=== PATIENT | male | born 1950 | race American Indian/Alaskan Native ===

== ENCOUNTER 2019-08-09 13:36 | Inpatient (IN) | payer BC ==
[2019-08-09 15:25] LABS: #Eosinphils 0.5 thou/uL (0.0-0.7); #Lymphocytes 1.4 thou/uL (1.20-3.40); #Monocytes 0.8 thou/uL (0.11-0.59); #Neutrophils 7.4 thou/uL (1.40-6.50); %Basophils 0.5 % (0.0-1.0); %Eosinophils 4.8 % (0.0-10.0); %Lymphocytes 13.8 % (21.0-51.0); %Monocytes 7.6 % (0.0-10.0); %Neutrophils 73.4 % (42.0-75.0); Hemoglobin 16.6 g/dL (14.0-18.0); Mean Corpuscular Hemoglobin 31.5 pg (27.0-31.0); Mean Corpuscular Volume 95.6 fL (78.0-98.0); Mean Platelet Volume 7.7 fL (7.4-10.4); Platelet Count 250 thou/uL (130-400); RBC Distribution Width 12.9 % (11.5-14.5); Red Blood Cell (RBC) Count 5.26 mill/uL (4.70-6.10); White Blood Cell (WBC) Count 10.1 thou/uL (4.8-10.8)
--- NOTE | 2019-08-09 15:27 | RAD ---
XR Chest 1 View Portable History: Abnormal EKG. Comparison: None. Findings: Heart size mildly enlarged. No pneumothorax. No effusion. No concerning for airspace consol idation. No acute osseous abnormality. Impression: No acute intrathoracic abnormality.
[2019-08-09 15:47] LABS: ALT (SGPT) 35 U/L (8-55); AST (SGOT) 38 U/L (5-34); Albumin 4.6 g/dL (3.4-4.8); Alkaline Phosphatase 77 U/L (40-110); Anion Gap 13 mmol/L (10-20); BUN (Urea Nitrogen) 8 mg/dL (8.4-25.7); Bilirubin, Total 1.3 mg/dL (0.2-1.2); Calc. Creatinine Clearance 0 mL/min (70-130); Calcium 10.4 mg/dL (7.8-10.44); Carbon Dioxide 26 mmol/L (23-31); Chloride 102 mmol/L (98-107); Estimated GFR-MDRD Greater than 90; Globulin 3.5 g/dL (2.4-3.5); Glucose 103 mg/dL (80-115); Potassium 4.3 mmol/L (3.5-5.1); Protein, Total 8.1 g/dL (5.8-8.1); Sodium 137 mmol/L (136-145)
[2019-08-09] MEDS ORDERED: Clopidogrel Bisulfate 75 MG TAB ONE (16:27)
[2019-08-09 17:40] LABS: PTT 29.5 SEC (22.9-36.1); Prothrombin Time 12.8 SEC (12.0-14.7)
[2019-08-09] MEDS ORDERED: Enoxaparin Sodium 80 MG/0.8 ML SYRINGE ONE (17:44)
[2019-08-09 18:59] LABS: Troponin I 0.024 ng/mL (< 0.028)
[2019-08-09] MEDS: Carvedilol 6.25 MG TAB PO SCH (21:37)
[2019-08-09] MEDS: Atorvastatin Calcium 20 MG TAB PO SCH (21:37)
--- NOTE | 2019-08-10 00:45 | HP ---
CHIEF COMPLAINT: Abnormal EKG and elevated blood pressure. HISTORY OF PRESENT ILLNESS: Mr. Dowd is a 69-year-old [place] male with past medical history of hypertension, coronary artery disease status post stent, hyperlipidemia, came to my office for routine checkup and physical. He had an EKG done which showed atrial flutter with controlled ventricular rate. The patient did not have any palpitations or chest pain, but he does have some shortness of breath on exertion going on for some time. No dizziness. No nausea or vomiting. No headache. The patient basically was asymptomatic. The patient was sent to the hospital because of atrial flutter, possible new onset. In the ER, the patient was evaluated and found to have atrial flutter with rapid ventricular rate. The patient received Cardizem IVP dose x2, after which his rate came down. His blood pressures were also elevated and they both came down with IVP Cardizem. Initially, proposed to start IV infusion, but it was never started because his heart rate came down to 70. The patient feels fine right now. He is being admitted for further evaluation and management. PAST MEDICAL HISTORY: 1. Hypertension. 2. Coronary artery disease, status post stent in 2004. 3. Hyperlipidemia. 4. Shortness of breath on exertion. PAST SURGICAL HISTORY: Status post stent in 2004. CURRENT MEDICATIONS: The patient is on: 1. Coreg 6.25 b.i.d. 2. Olmesartan 20 mg daily. 3. Plavix 75 mg daily. 4. Isosorbide 20 mg daily. 5. Atorvastatin 20 mg at bedtime. ALLERGIES: NKDA. FAMILY HISTORY: Nothing contributory. SOCIAL HISTORY: No history of alcohol. No history of smoking. REVIEW OF SYSTEMS: CARDIOVASCULAR: No chest pain. Has shortness of breath on exertion. RESPIRATORY: No cough or fever. GASTROINTESTINAL: No nausea or vomiting. CENTRAL NERVOUS SYSTEM: No headache or dizziness. PHYSICAL EXAMINATION: GENERAL: The patient is alert, awake, oriented x3. VITAL SIGNS: Temperature 98; pulse initially 119, now in 70; respirations 20, blood pressure 190/100 initially, now 160/90. HEENT: Normocephalic, atraumatic. Pupils are equal and reactive. Nasopharynx is pale and dry. NECK: Supple. No JVD. LUNGS: Bilateral air entry with no rales. No rhonchi. HEART: S1 and S2, irregular. ABDOMEN: Soft. No distention. No tenderness. No organomegaly. Bowel sounds normal. RECTAL: Deferred. CENTRAL NERVOUS SYSTEM: No focal deficits. LABORATORY DATA: CBC shows WBC 10, hemoglobin 16, hematocrit 50, platelets Metabolic panel; sodium 137, potassium 4.0 chloride 102, CO2 of 26, urea nitrogen 8, creatinine 0.8, glucose 103, AST of 38. Troponin I less than 0.010. Prothrombin time 12, INR 1. Chest x-ray negative. EKG shows atrial flutter with rapid ventricular rate, with heart rate 119. No acute ST-T changes seen. ASSESSMENT: 1. Atrial flutter with rapid ventricular rate. 2. Hypertension, uncontrolled. 3. Coronary artery disease, status post stent. 4. Hyperlipidemia. PLAN: 1. Vital signs q.4 hours. 2. Activities as tolerated. 3. Allergies, NKDA. 4. Hep-Lock. 5. Cardizem 60 b.i.d. p.o. 6. Continue home medications. 7. Cardiology consult. 8. Echocardiogram. 9. Troponin I q.6 hours x2. 10. Lovenox subcu daily. Job ID: [id number] [facility]
[2019-08-10 06:12] VITALS: BMI 23.4
[2019-08-10] MEDS ORDERED: Prevnar 13-Val Conj/PF 0.5 ML SYRINGE IM ONE (09:00)
[2019-08-10] MEDS: Losartan 25 MG TAB PO SCH (09:41)
[2019-08-10] MEDS: Carvedilol 6.25 MG TAB PO SCH ×2 (09:41→21:16)
[2019-08-10] MEDS: Enoxaparin Sodium 60 MG/0.6 ML SYRINGE SC SCH ×2 (09:41→21:17)
[2019-08-10] MEDS: Clopidogrel Bisulfate 75 MG TAB PO SCH (09:42)
--- NOTE | 2019-08-10 10:55 | CON ---
DATE OF CONSULTATION: 08/10/2019 ADDITIONAL REFERRING PHYSICIAN: Russ Bernal MD HISTORY OF PRESENT ILLNESS: I am seeing Mr. 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 His problems are: 1. Newly found atrial flutter with typical likely isthmus dependent features present on morphology, but non-CTI dependent morphology was also observed. 2. History of coronary artery disease with stent placement in the past. 3. History of hypertension. 4. Hyperlipidemia. ALLERGIES: NONE. MEDICATIONS: At home, included: 1. Carvedilol. 2. Clopidogrel. 3. Olmesartan. SUBJECTIVE: Mr. Dowd is here with abnormal EKGs. He has noticed some palpitations recently, but denies passing out or any generalized discomforts. He has no stroke-like symptoms or bleeding issues. No neurological deficits. He went to his primary care physician's office and found to have atrial flutter with controlled ventricular rates. He does complain of some dyspnea recently. IV Cardizem was given. His rates remain controlled. Currently, the patient is fairly asymptomatic with controlled rate. REVIEW OF SYSTEMS: Rest of 12-point review of system was otherwise unremarkable. PAST HISTORY: As above. SOCIAL HISTORY: The patient denies smoking, EtOH, or drug abuse. FAMILY HISTORY: Not contributory. OBJECTIVE DATA: VITAL SIGNS: Blood pressure is 142/81, heart rate 79, respirator rate 16, and temperature 98 degrees Fahrenheit. GENERAL: Alert and oriented man, in no apparent distress. NECK: Supple. Jugular veins not distended. CHEST: Coarse without crackles. HEART: Sounds are irregularly irregular. S1 and S2 are variable. No murmur or gallop. ABDOMEN: Benign. Bowel sounds positive. EXTREMITIES: Lower extremities without edema, clubbing, or cyanosis. Pulses are adequate. NEUROLOGIC: The patient is nonfocal. MUSCULOSKELETAL: Without joint swelling or deformity. SKIN: Without rash. DATABASE: EKG is reviewed. Initial EKG reveals a very irregular atrial flutter , possibly consistent with isthmus dependent morphology. The ventricular rates are 81 beats per minute. Subsequent EKGs reveal atrial flutter. Review of the telemetry strips revealed alternative flutter morphologies. No true atrial fibrillation is noted yet. LABORATORY DATA: White blood cell count is 10.1, hemoglobin 16.6, and platelet count is 250. INR 1.0. Sodium 137, potassium 4.3, BUN is 8, and creatinine is 0.84. ASSESSMENT AND PLAN: Mr. Dowd is a pleasant 69-year-old man with history of coronary artery disease and stent placement. He has no history of cardiomyopathy or prior arrhythmias. He now presented with newly found atrial flutter with some dyspnea, rates are most controlled and did not require high dosage of rate-controlling agents. Morphology of the EKG is reviewed, which could suggest typical isthmus dependent flutter in morphology, but telemetry strips does reveal some alternative morphology suggestive of multiple circuits may be present. We discussed the etiology of atrial flutter and potential fibrillation with him. He understands the mechanism and the treatment options, which could include continued rate control with anticoagulation, alternatively with AVA-guided cardioversion could be considered and may benefit from Multaq as an additional antiarrhythmic agent. If that fails or does not tolerate medication, he may benefit from ablation efforts in the future. We will see him back in the office in this regard. Thank you again for allowing me to participate in the care of this patient. Job ID: [id number] [facility]
[2019-08-10] MEDS: Atorvastatin Calcium 20 MG TAB PO SCH (21:16)
[2019-08-11] MEDS: Clopidogrel Bisulfate 75 MG TAB PO SCH (08:58)
[2019-08-11] MEDS: Carvedilol 6.25 MG TAB PO SCH (08:58)
[2019-08-11] MEDS: Enoxaparin Sodium 60 MG/0.6 ML SYRINGE SC SCH (08:59)
[2019-08-11] MEDS: Losartan 25 MG TAB PO SCH (08:59)
--- NOTE | 2019-08-11 09:09 | CON ---
DATE OF CONSULTATION: PRIMARY CARE DOCTOR: Dr. Bernal. PRIMARY SUPERIOR COURT JUDGE: Dr. Elizabeth Riojas. ELECTROPHYSIOLOGY DOCTOR: Dr. Hu. REASON FOR CARDIOLOGY CONSULTATION: New onset atrial flutter. HISTORY OF PRESENT ILLNESS: Mr. Dowd is a very present 69-year-old [place] male with a significant history of coronary artery disease status post stent placement x2 in 2006 in [facility]. He says he does not have any history of hypertension or hyperlipidemia before. The patient was doing relatively well and yesterday when he was at the primary care doctor's for the routine physical checkup, he was found to have atrial flutter with well controlled heart rate. The patient was instructed to present to the emergency department for further evaluation and treatment. At the ER, the patient was found to have atrial flutter with rapid ventricular response, which Cardizem IV push corrected the patient's heart rate to 90 to 100. At this moment, the patient's heart rate has been in 70s to 90s. The patient denies any palpitation, fluttering, dizziness, lightheadedness, shortness of breath, fatigue, or any other complaints during the episode. He has not seen any automatic quilling machine operator since he is in . PAST MEDICAL HISTORY: Coronary artery disease, status post stent placement x2 in 2006 in [facility]. PAST SURGICAL HISTORY: Stent placement x2 in 2005. FAMILY HISTORY: His mother had a history of hypertension, diabetes. SOCIAL HISTORY: He is . He has 2 children, who live well. He denies EtOH, smoking, or illicit drug abuse. He does not do exercise, but watches his diet and he has been active. 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 ALLERGIES: HE HAS NO KNOWN DRUG ALLERGIES. MEDICATIONS: 1. Carvedilol 6.25 mg twice a day. 2. Olmesartan 20 mg once a day. 3. Multivitamin. 4. Aspirin as needed for headache and body achiness. 5. The patient is taking Plavix 75 mg once a day. REVIEW OF SYSTEMS: 12-point review of systems negative unless otherwise mentioned in HPI. PHYSICAL EXAMINATION: VITAL SIGNS: Blood pressure is 105/58, temperature 98.1, heart rate 70s to 90s with atrial flutter, respiratory rate 18, O2 saturation 98% on room air. GENERAL: The patient is alert and oriented x4, not in acute distress. HEENT: Normocephalic, atraumatic. EYES: Extraocular muscle movement intact. ENT AND MOUTH: Oral and nasal mucosa moist without lesion. NECK: Supple. Normal range of motion. No JVD. RESPIRATORY: Clear to auscultate bilaterally. No wheezing, rales, or rhonchi noted. CARDIOVASCULAR: Irregularly irregular. No S3 or S4. No significant murmur, hives, or thrill noted. 2+ pulses in the bilateral upper and lower extremities. No edema in the lower extremities. Carotid pulses are present without bruit or thrill. ABDOMEN: Soft, nontender. No mass to palpitate. Bowel sounds are present. MUSCULOSKELETAL: The patient able to move all extremities. The patient denied claudication. SKIN: Warm and dry. No lesion, rash, or erythema noted. NEUROLOGIC: The patient is alert and oriented x4, nonfocal. PSYCHIATRIC: The patient's mood is appropriate. LABORATORY DATA: Telemetry record has been showing the patient has atrial flutter with heart rate of 70s to 90s. WBC 10.1, hemoglobin 16.6, hematocrit 50.3, platelets 250. Sodium 137, potassium 4.3, BUN 8, creatinine 0.84, glucose 103, AST 38, ALT 35. Troponin is negative, 0.024 and 0.020. The patient's chest x-ray shows no acute intrathoracic abnormality. The patient had echocardiogram done today and results are pending at this moment. ASSESSMENT AND PLAN: 1. New onset atrial flutter with rapid ventricular response. The patient's heart rate is stable at this moment with carvedilol 6.25 mg twice a day and diltiazem 60 mg twice a day. He is already consulted by Dr. Hu, EP doctor, who recommended the patient to have a possible AVA and cardioversion or prescribed Multaq as an outpatient. At this moment, he is on Lovenox 60 mg subcu twice a day. Since unknown onset, further cardiac treatment which converts patient's heart rate to sinus rhythm, should wait up to 4 to 6 weeks unless the patient is symptomatic. Again, at this moment, the patient's heart rate is well controlled with current medication. 2. Hypertension. Reports the patient does not have a history of hypertension, his blood pressure is stable with carvedilol 6.25 mg twice a day, diltiazem 60 mg twice a day, and losartan 50 mg once a day. We would like to continue current medication as the patient is asymptomatic. 3. Coronary artery disease with a history of stent placement x2 in 2005. The patient is asymptomatic. He is on the beta-carlitos or Plavix. He is not on aspirin. However, the patient states placement was more than 10 years ago, Plavix itself might be enough for this patient at this moment. He is on Lipitor 20 mg once a day also. Thank you very much for allowing the Cardiology Service to participate in the care of this patient. We will follow along the patient's care team and make further recommendations as appropriate. Job ID: [id number]
--- NOTE | 2019-08-11 11:48 | PDOC.EP ---
- Subjective Date: 08/11/19 Time: 09:00 Interval History: follow up for atrial arrhythmias. NPO for AVA/CV with cardiology later today. Otehrwise he is without complaint/concern today. - Review of Systems Constitutional: denies: chills, fever, malaise, sweats, weakness, other Respiratory: denies: cough, dry, hemoptysis, pleuritic pain, shortness of breath , SOB with excertion, sputum, wheezing, other Cardiology: reports: palpitations. denies: chest pain, edema, heart racing, light headedness, orthopnea, paroxysmal noc. dyspnea, passing out Gastrointestinal: denies: abdominal pain, constipation, diarrhea, nausea, vomitting Musculoskeletal: denies: unstable gait, falls - Objective Allergies/Adverse Reactions: Allergies Allergy/AdvReac Type Severity Reaction Status Date / Time No Known Allergies Allergy Verified 08/09/19 22:08 Current Medications Atorvastatin Calcium (Lipitor) 20 mg PO HS [facility] Last Admin: 08/10/19 21:16 Dose: 20 mg Carvedilol (Coreg) 6.25 mg PO BID [facility] Last Admin: 08/11/19 08:58 Dose: 6.25 mg Clopidogrel Bisulfate (Plavix) 75 mg PO DAILY [facility] Last Admin: 08/11/19 08:58 Dose: 75 mg Diltiazem HCl (Cardizem) 30 mg PO BID [facility] Last Admin: 08/11/19 08:58 Dose: 30 mg Enoxaparin Sodium (Lovenox) 60 mg SC 0900,2100 [facility] Last Admin: 08/11/19 08:59 Dose: 60 mg Losartan Potassium (Cozaar) 50 mg PO DAILY [facility] Last Admin: 08/11/19 08:59 Dose: 50 mg Sodium Chloride (Flush - Normal Saline) 10 ml IVF Q12HR [facility] Last Admin: 08/11/19 09:01 Dose: 10 ml Sodium Chloride (Flush - Normal Saline) 10 ml IVF PRN PRN PRN Reason: Saline Flush Vital Signs & Weight: Vital Signs Temp Pulse Resp BP BP Pulse Ox 08/11/19 08:58 120/78 08/11/19 08:00 98.3 F 90 18 120/78 95 08/11/19 04:00 98.5 F 60 16 151/73 H 99 Weight 170 lb I/O: I/O 08/10/19 08/11/19 08/12/19 06:59 06:59 06:59 Intake Total 361 280 Output Total 650 600 Balance -289 -320 - Quality Measures Condition: Atrial Fibrillation/Flutter (hx or current) (lovenox and plavix) - Physical Exam General: alert & oriented x3, appears well, no apparent distress, speech clear, affect appropriate HEENT: mucus membranes moist, normocephaly Neck: supple neck, midline trachea, no JVD/HJR, no masses, no bruit, no lymphadenopathy, no thromegaly Cardiology: no murmur, PMI nondisplaced, irregularly irregular Lungs: clear to auscultation, normal breath sounds, no wheeze, rales, rhonchi Neurology: cranial nerve 2-12 intact, grossly intact, no lateralizing findings - Chadsvasc Risk factors Hypertension: 1 Age 65-74: 1 Vascular disease: 1 Risk Score: 3 - Labs Result Diagrams: 08/09/19 15:14 08/09/19 15:14 - EKG Interpretation Status: report reviewed by me EKG shows: Atrial fibrillation, Typical atrial flutter, Atypical atrial flutter - Assessment/Plan Assessment/Plan: 1. Atrial arrhythmias - CTI and non CTI dependent flutter are seen in addition to A Fib. Mildy symptomatic - AVA cardioversion scheduled for today - Consider Multaq if CV fails or early recurrence is seen 2. Anticoagulation for CVA prophylaxis - on lovenox and plavix - will need NOAC, such as eliquis 5mg BID to be started before DC. 3. HTN 4. Bradycardia - pauses up to 3 seconds seen, mostly which transitioning between a fib and flutter. No conversion pauses thus far - caution with AV chin blocking agents 6 week follow up requested. Will check on patient Wednesday if he remains hospitalized.
[2019-08-11 12:30] VITALS: TEMP 97.7
--- NOTE | 2019-08-11 13:23 | CON ---
DATE OF CONSULTATION: 08/10/2019 HISTORY OF PRESENT ILLNESS: Please refer to the notes dictated by my nurse practitioner, Nohemy Dodd. This is a very pleasant 69-year-old patient, who has a history of coronary artery disease, underwent angioplasty and stent placement back in 2005 in his [place] [facility]. He has had no problems since that time. He was seen by his primary care physician, was noted to have a somewhat irregular heart rate, when EKG showed that he was in atrial flutter. He was admitted to the hospital since being in flutter. He has not had any significant tachycardia associated with this. He was unaware that he had an irregular heart rate. He was in flutter and occasionally he has been converted to atrial fibrillation. He has been seen by the pony roll finisher. Consultation has been undergone. I have discussed this case with the nurse practitioner as well as the pony roll finisher. We have arrived a decision that perhaps he would best be served by undergoing an electrocardioversion after a AVA for his atrial flutter and perhaps will maintain sinus rhythm. If not, he may need to undergo extensive ablation as the flutter changes from a somewhat atypical flutter and also intermittently with atrial fibrillation, he may need to undergo flutter as well as atrial fibrillation ablation. Otherwise, he remains stable. He denies any shortness of breath or chest pain. PAST MEDICAL HISTORY: Noted for the coronary artery disease, stent placement, otherwise in the atrial flutter now. He has had no other significant past medical history for his. FAMILY HISTORY: Please refer to the notes dictated by the nurse practitioner. SOCIAL HISTORY: Please refer to the notes dictated by the nurse practitioner. REVIEW OF SYSTEMS: Please refer to the notes dictated by the nurse practitioner. MEDICATIONS: Please refer to the notes dictated by the nurse practitioner. ALLERGIES: PLEASE REFER TO THE NOTES DICTATED BY THE NURSE PRACTITIONER. ASSESSMENT AND PLAND: I have evaluated the patient and I have agreed with the assessment and plan. We will proceed with a AVA and cardioversion today of the patient to see whether or not he can maintain sinus rhythm. Otherwise, he is doing fine. IMPRESSION: 1. Atrial flutter as noted above and the plan is to proceed with electrocardioversion after AVA. 2. Hypertension. This appears to be relatively stable. We will continue his medications. 3. Coronary artery disease. This also appears to be stable. At some point in the future, he will need to undergo stress testing because if he has not had any recent stress within the last 2 to 3 years. 4. Hypercholesterolemia. We will continue him on Lipitor. Otherwise, I would agree. We have discussed this patient in detail and I would agree with the assessment and plan and the physical examination. Job ID: [id number]
[2019-08-11 16:04] VITALS: BP 102/59
--- NOTE | 2019-08-11 16:25 | OP ---
DATE OF PROCEDURE: 08/11/19 SURGEON: Elizabeth Riojas M.D. INDICATION FOR PROCEDURE: This is a 69-year-old gentleman who was noted to have atrial fibrillation and flutter, somewhat atypi yenni flutter with varying between typical and atypical flutter and also intermittent atrial fibrillati on. He was advised to patient with atrial flutter, was advised to undergo electrical cardioversion of the atrial flutter and fibrillation. Prior to undergoing the AVA and cardioversion the patient has s elf-converted back to a sinus bradycardia. Heart rate is in the 40s and 50s. He is completely asympto matic. No AVA or cardioversion was performed.
[2019-08-11] MEDS ORDERED: Apixaban 5 MG TAB PO SCH (21:00)
== END 2019-08-11 16:55 | disposition home or self-care (01) | DRG 310 ==
LOC: ERS 13:36 → 2NO 17:39
PROVIDERS: ADMIT Internal Medicine; ATTEND Internal Medicine
PROC: 3E0234Z Introduction of Serum, Toxoid and Vaccine into Muscle, Percutaneous Approach (ICD-10-PCS; principal; 2019-08-09)
DX: I48.4 Atypical atrial flutter (principal); I44.1 Atrioventricular block, second degree; I10 Essential (primary) hypertension; I25.10 Atherosclerotic heart disease of native coronary artery without angina pectoris; E78.5 Hyperlipidemia, unspecified; E78.00 Pure hypercholesterolemia, unspecified; I48.91 Unspecified atrial fibrillation; Z95.5 Presence of coronary angioplasty implant and graft; I25.2 Old myocardial infarction; Z79.899 Other long term (current) drug therapy; Z23 Encounter for immunization; Z79.02 Long term (current) use of antithrombotics/antiplatelets
CPT/HCPCS: 36415; 71045; 80053; 84484; 85025; 85610; 85730; 90471; 90670; 93005; 93306; 94760; 96372; 96374; G0009; J1650

== ENCOUNTER 2019-09-27 08:05 | Outpatient (CLI) | payer BC ==
[2019-09-27 17:37] LABS: Hemoglobin 14.5 g/dL (14.0-18.0); Mean Corpuscular HGB CONC 32.4 g/dL (32.0-36.0); Mean Corpuscular Hemoglobin 30.9 pg (27.0-31.0); Mean Corpuscular Volume 95.4 fL (78.0-98.0); Mean Platelet Volume 9.9 fL (7.4-10.4); Platelet Count 162 thou/uL (130-400); RBC Distribution Width 12.4 % (11.5-14.5); White Blood Cell (WBC) Count 8.7 thou/uL (4.8-10.8)
[2019-09-27 17:42] LABS: INR-International Normal Ratio 1.1; Prothrombin Time 14.4 SEC (12.0-14.7)
[2019-09-27 17:54] LABS: Anion Gap 12 mmol/L (10-20); BUN (Urea Nitrogen) 10 mg/dL (8.4-25.7); Calc. Creatinine Clearance 0 mL/min (70-130); Calcium 10.6 mg/dL (7.8-10.44); Carbon Dioxide 25 mmol/L (23-31); Chloride 105 mmol/L (98-107); Estimated GFR-MDRD Greater than 90; Glucose 96 mg/dL (80-115); Sodium 138 mmol/L (136-145)
== END 2019-09-27 08:06 | disposition home or self-care (01) ==
LOC: LABBT 08:05
PROVIDERS: ATTEND Internal Medicine Cardiovascular Disease
DX: Z01.812 Encounter for preprocedural laboratory examination (principal); I49.5 Sick sinus syndrome; R00.1 Bradycardia, unspecified
CPT/HCPCS: 80048; 85027; 85610

== ENCOUNTER 2019-09-29 06:02 | Day surgery (SDC) | payer BC ==
[2019-09-27 15:10] VITALS: BMI 29.7
[2019-09-29] MEDS ORDERED: Vancomycin 1.5 GRAM/300 ML BAG 1.5 GM/300 ML BAG ONE (06:48)
[2019-09-29] MEDS ORDERED: Gentamicin 80 MG/2 ML VIAL ONE (07:12)
[2019-09-29] MEDS ORDERED: CEFAZOLIN 1 GM VIAL ONE (07:12)
[2019-09-29] MEDS ORDERED: Fentanyl 100 MCG/2 ML VIAL ONE (07:12)
[2019-09-29] MEDS ORDERED: Midazolam HCl 2 mg/2 ml Vial ONE (07:12)
[2019-09-29] MEDS ORDERED: Amiodarone 150 MG/3 ML VIAL ONE (09:11)
[2019-09-29] MEDS ORDERED: Iopamidol 370 76% 50 ML VIAL FS ONE (09:44)
--- NOTE | 2019-09-29 10:22 | RAD ---
SINGLE VIEW CHEST: Date: 09/29/2019 COMPARISON: 08/09/19. HISTORY: Status post pacemaker placement. FINDINGS: Single view of the chest shows an enlarged but stable cardiomediastinal silhouette. There is a left s ubclavian pacemaker with its leads in the right atrium and ventricle. No pneumothorax is seen. There is no evidence of consolidation, mass, or pleural effusion. IMPRESSION: Status post pacemaker placement without evidence of complication. POS: TPC
--- NOTE | 2019-09-29 10:42 | OP ---
DATE OF PROCEDURE: 09/29/2019 PRIMARY CARE PHYSICIAN: Russ Bernal MD PREOPERATIVE DIAGNOSES: 1. Sick sinus syndrome with symptomatic bradycardia. 2. Atrial flutter. POSTOPERATIVE DIAGNOSES: 1. Sick sinus syndrome with symptomatic bradycardia. 2. Atrial tachycardia. PROCEDURES PERFORMED: Dual-chamber pacemaker implantation, Medtronic Nalini XT DR MRI conditional pacemaker, model #W1DR01, serial #[id number]. Right atrial lead, model 5076-45, serial #[id number]. Right ventricular lead, model 5076-52, serial #[id number]. SUPERVISOR HAND SILVERING: Bravo Maharaj MD MANAGER MANUFACTURING: None. COMPLICATIONS: None. ESTIMATED BLOOD LOSS: Less than 10 mL. SPECIMENS: None. ANESTHESIA: Versed/fentanyl. DESCRIPTION OF PROCEDURE: The risks, benefits, and alternatives of permanent pacemaker insertion, including but not limited to myocardial infarction, stroke, , lead dislodgement, need for revision, infection, need for device removal, venous thrombosis with arm swelling were discussed prior to procedure. The patient was brought electively to the cardiac electrophysiology suite. Venogram showed patent left subclavian vein with normal anatomy. The left pectoral area was prepped and draped in a sterile fashion. Lidocaine was infiltrated in this area. Sedation was performed by circulating nurse. Incision was made. Pocket was formed. Hemostasis was achieved using two separate sticks over the first rib. Guidewires were placed. Sheaths were placed. Leads were placed in the right ventricular apex and right atrial appendage. There were actively fixed. There were sutured to the fascia with 0 silk x2. The pocket was irrigated with antibiotic solution. Device was connected to the leads. The device was placed in the pocket. The incision was closed with running 2-0 Stratafix, followed by a running 4-0 Stratafix suture. Fluoroscopy showed good lead position with no pneumothorax. No retained products. The patient developed atrial tachycardia at 130 beats per minute during the case, which was sustained. He will be transferred to the recovery area. If his atrial tachycardia persists, we will consider admission. Job ID: [id number]
[2019-09-29] MEDS ORDERED: Carvedilol 3.125 MG TAB ONE (11:06)
[2019-09-29] MEDS ORDERED: Acetaminophen/Codeine 30-300mg Tablet ONE (12:11)
[2019-09-29] MEDS ORDERED: HYDROcodone/Acetaminophen 5/325 mg Tablet ONE (12:11)
== END 2019-09-29 13:52 | disposition home or self-care (01) ==
LOC: CCL 06:02
PROVIDERS: ATTEND Internal Medicine Cardiovascular Disease
PROC: 0JH606Z Insertion of Pacemaker, Dual Chamber into Chest Subcutaneous Tissue and Fascia, Open Approach (ICD-10-PCS; principal; 2019-09-29)
PROC: 02H73JZ Insertion of Pacemaker Lead into Left Atrium, Percutaneous Approach (ICD-10-PCS; principal; 2019-09-29)
DX: I49.5 Sick sinus syndrome (principal); I47.1 Supraventricular tachycardia
CPT/HCPCS: 33208; 36005; 71045; 75820; 93005; 93010; 93798; 99152; 99153; C1785; C1898; J0282; J0690; J1580; J2250; J3010; Q9967